=== PATIENT | female | born 1945 | race Asian ===

== ENCOUNTER → 2018-08-15 10:13 | Outpatient (RCR) | payer MEDICARE, OTHER | END | disposition left against medical advice (07) | LOC: M ONCM 10:13 | DX: D64.9 Anemia, unspecified (principal); D72.819 Decreased white blood cell count, unspecified; D69.6 Thrombocytopenia, unspecified; Z53.21 Procedure and treatment not carried out due to patient leaving prior to being seen by health care provider ==